=== PATIENT | female | born 1965 | race Caucasian/White ===

== ENCOUNTER 2018-06-05 00:35 | Emergency (ER) | payer SELFPAY ==
[2018-06-05 00:57] VITALS: BP 160/96; PULSE 94; TEMP 98.2; BMI 31.4
--- NOTE | 2018-06-05 01:16 | PDOC ---
History of Present Illness - General Chief Complaint: Chest Pain Stated Complaint: CHEST PRESSURE Time Seen by Provider: 06/05/18 01:14 - History of Present Illness Initial Comments: 52yo F with PMH of pre-diabetes presenting with chest pain x 4 hours. Currently rated 4/10. Pain is described as a pressure and comes and goes. She first felt the pain during a prayer meeting while she was sitting and does not notice a correlation with exertion. The chest pain is non-radiating, non-palpable, and non-pleuritic. It was accompanied with full body tingling. 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 Denies nausea or vomiting, or personal or family history of previous GA. Patient also endorses headache. No hemoptysis, no recent surgical history, no recent mobilization, no hormone use, no history of DVT or PE. No history of arrhythmia. Patient does not want anything for her pain. No fever, chills, or abdominal pain. Past History - Past Medical History Allergies/Adverse Reactions: Allergies Allergy/AdvReac Type Severity Reaction Status Date / Time No Known Allergies Allergy Verified 06/05/18 00:56 Home Medications: Ambulatory Orders NK [No Known Home Medication] 06/05/18 - Suicide/Smoking/Psychosocial Hx Smoking History: Never smoked Have you smoked in the past 12 months: No Information on smoking cessation initiated: No Hx Alcohol Use: No Drug/Substance Use Hx: No Review of Systems - Review of Systems Comments:: Constitutional: no fever, no chills HEENT: no throat pain, no dysphagia Cardiovascular: +chest pain, no palpitations Respiratory: no cough, no shortness of breath Gastrointestinal: no abdominal pain, no nausea, no vomiting Genitourinary: no dysuria, no frequency Musculoskeletal: no myalgia, no arthralgia Skin: no rash, no itching Neurologic: +headache, no dizziness *Physical Exam - Vital Signs Last Vital Signs Temp Pulse Resp BP Pulse Ox 98.2 F 94 H 18 160/96 100 06/05/18 00:56 06/05/18 00:56 06/05/18 00:56 06/05/18 00:56 06/05/18 00:56 - Physical Exam Comments: General: Awake, alert, and fully oriented; malaise Head: No signs of trauma Eyes: EOMI, sclera anicteric ENT: Dry mucus membranes Neck: Normal ROM, supple Lungs: Lungs clear, Normal breath sounds Cardio: Regular rhythm, S1 and S2 present Abdomen: Soft, nontender Extremities: Normal range of motion, Distal pulses present SKIN: Warm, Dry, normal turgor Neurologic: Cranial nerves II through XII grossly intact. Normal speech Moderate Sedation - Procedure Monitoring Vital Signs: Procedure Monitoring Vital Signs Temperature 98.2 F 06/05/18 00:56 Pulse Rate 94 H 06/05/18 00:56 Respiratory Rate 18 06/05/18 00:56 Blood Pressure 160/96 06/05/18 00:56 O2 Sat by Pulse Oximetry (%) 100 06/05/18 00:56 ED Treatment Course - LABORATORY CBC & Chemistry Diagram: 06/05/18 01:15 06/05/18 01:15 Medical Decision Making - Medical Decision Making 52yo F with PMH of pre-diabetes presenting with chest pain x 4 hours. Currently rated 4/10. -DDX includes but not limited to ACS, MSK, GERD, anemia. -Cardiac Workup -1LNS, 1g Ofirmev 06/05/18 02:24 Patient reports feeling better. No chest pain 06/05/18 02:48 EKG: rate 86, QTc 440, NSR Tpn negative. WBC=14, Unknown what is the cause of this leukocytosis. Patient is well appearing, afebrile with no apparent signs of infection. Normal lung exam. No urinary symptoms. Advised to follow-up with primary care physician HEART score: 2 (for age and pre-DM) Patient discharged 06/05/18 03:00 *DC/Admit/Observation/Transfer Diagnosis at time of Disposition: Chest pain - Discharge Dispostion Disposition: HOME Condition at time of disposition: Stable - Referrals - Patient Instructions Printed Discharge Instructions: DI for Chest Pain Additional Instructions: You came into the ED for chest pain. We performed blood work and an EKG which were normal. Follow-up with a primary care doctor this week to discuss this ED visit and to further evaluate your chest pain. You were also found to have an elevated blood pressure which warrants getting a repeat measurement. We gave you a copy of your labs to show your physician. Call for emergency medicine services or go to the emergency room right away if you have symptoms of a heart attack, including: Chest pain, which may feel like a crushing weight A sense of fullness, squeezing, or pressure in the chest Rapid, irregular heartbeat Pain, tingling or numbness in the left shoulder and arm, the neck or jaw, or the right arm Sweating Nausea or vomiting Lightheadedness, weakness, or fainting Shortness of breath If you think you have an emergency, call for medical help right away. - Post Discharge Activity
[2018-06-05 01:33] LABS: BASO % 0.2 % (0-2.0); HEMATOCRIT 36.4 % (32.4-45.2); HEMOGLOBIN 12.7 GM/dL (10.7-15.3); MCH 29.9 pg (25.7-33.7); MEAN CELL VOLUME 85.6 fl (80-96); MEAN PLT VOLUME 9.3 fl (7.5-11.1); MONO % 1.4 % (3.8-10.2); NEUT % 92.4 % (42.8-82.8); PLATELET COUNT 254 K/MM3 (134-434); RBC 4.25 M/mm3 (3.60-5.2); RDW 13.5 % (11.6-15.6)
--- NOTE | 2018-06-05 01:34 | PDOC ---
Attending Attestation - Resident Resident Name: Tess Sow - ED Attending Attestation I have performed the following: I have examined & evaluated the patient, The case was reviewed & discussed with the resident, I agree w/resident's findings & plan, Exceptions are as noted - HPI HPI: 52 yo F history pre-diabetes p/w chest pain x4 hrs. She states she felt it during a prayer meeting. She became stressed when she felt the pain, started to hyperventilate, then developed numbness in her tongue and limbs. No N/V, sweating, SOB, leg swelling. No prior history of heart problems. - Physicial Exam PE: GENERAL: Awake, alert, and fully oriented, in no acute distress HEAD: No signs of trauma EYES: PERRLA, EOMI, sclera anicteric, conjunctiva clear ENT: Auricles normal inspection, hearing grossly normal, nares patent, oropharynx clear without exudates. Moist mucosa NECK: Normal ROM, supple, no lymphadenopathy, JVD, or masses LUNGS: Breath sounds equal, clear to auscultation bilaterally. No wheezes, and no crackles HEART: Regular rate and rhythm, normal S1 and S2, no murmurs, rubs or gallops ABDOMEN: Soft, nontender, normoactive bowel sounds. No guarding, no rebound. No masses EXTREMITIES: Normal range of motion, no edema. No clubbing or cyanosis. No cords, erythema, or tenderness NEUROLOGICAL: Cranial nerves II through XII grossly intact. Normal speech, normal gait SKIN: Warm, Dry, normal turgor, no rashes or lesions noted. - Medical Decision Making Low risk for ACS by clinical eval. Asymptomatic in ED. EKG wnl, labs wnl. DC home.
[2018-06-05] MEDS ORDERED: ACETAMINOPHEN 1000 MG/100 ML VIAL (NON FORMULARY) IVPB ONE (01:41)
[2018-06-05] MEDS ORDERED: SODIUM CHLORIDE 1,000 ML IV STA (01:41)
[2018-06-05] MEDS ORDERED: ACETAMINOPHEN INJECTION 100 ML IVPB ONE (01:46)
[2018-06-05 02:18] LABS: ALBUMIN 4.2 g/dl (3.4-5.0); ALK PHOS 142 U/L (45-117); ANION GAP 9 MMOL/L (8-16); BILIRUBIN,TOTAL 0.4 mg/dL (0.2-1); BLOOD UREA NITROGEN 20 mg/dL (7-18); CALCIUM 9.2 mg/dL (8.5-10.1); CHLORIDE 99 mmol/L (98-107); CO2 25 mmol/L (21-32); CREATININE 0.8 mg/dL (0.55-1.3); GLUCOSE,RANDOM 165 mg/dL (74-106); LIPASE 123 U/L (73-393); POTASSIUM 3.9 mmol/L (3.5-5.1); SGOT/AST 20 U/L (15-37); SGPT/ALT 31 U/L (13-61); SODIUM 133 mmol/L (136-145); TOT PROT 7.7 g/dl (6.4-8.2)
[2018-06-05 03:03] LABS: PLATELET ESTIMATE NORMAL
--- NOTE | 2018-06-05 11:25 | EKG ---
Test Reason : Blood Pressure : / mmHG Vent. Rate : 086 BPM Atrial Rate : 086 BPM P-R Int : 180 ms QRS Dur : 082 ms QT Int : 368 ms P-R-T Axes : 059 042 051 degrees QTc Int : 440 ms NORMAL SINUS RHYTHM NORMAL ECG NO PREVIOUS ECGS AVAILABLE Confirmed by JUDI DUKES, DINH ([id number]) on 06/05/2018 11:24:58 AM Referred By: Confirmed By:DINH LAU MD
== END 2018-06-05 03:18 | disposition home or self-care (01) ==
LOC: JER 00:35
DX: R07.89 Other chest pain (principal)
CPT/HCPCS: 36415; 71045-TC-FY; 80053; 82550; 82553; 83690; 84484; 85025; 93005; 93010; 99282-25; J0131; J7030